=== PATIENT | female | born 1980 | race Caucasian/White ===

== ENCOUNTER 2016-10-09 08:31 | Outpatient (CLI) | payer OTHER ==
[2016-10-09 08:53] LABS: #Basophils 0.1 thou/uL (0.0-0.2); #Eosinphils 0.2 thou/uL (0.0-0.7); #Lymphocytes 2.5 thou/uL (1.20-3.40); #Monocytes 0.4 thou/uL (0.11-0.59); #Neutrophils 6.3 thou/uL (1.40-6.50); %Eosinophils 1.9 % (0.0-10.0); %Lymphocytes 26.1 % (21.0-51.0); %Monocytes 4.3 % (0.0-10.0); %Neutrophils 66.7 % (42.0-75.0); Hemoglobin 14.5 g/dL (12.0-16.0); Mean Corpuscular HGB CONC 32.9 g/dL (32.0-36.0); Mean Corpuscular Hemoglobin 28.9 pg (27.0-31.0); Mean Corpuscular Volume 87.9 fl (81.0-99.0); Mean Platelet Volume 7.2 fL (7.4-10.4); Platelet Count 254 thou/uL (130-400); RBC Distribution Width 13.3 % (11.5-14.5); Red Blood Cell (RBC) Count 5.01 mill/uL (4.20-5.40); White Blood Cell (WBC) Count 9.4 thou/uL (4.8-10.8)
[2016-10-09 09:01] LABS: Hemoglobin A1c 6.1 % (4.0-6.0)
[2016-10-09 09:17] LABS: ALT (SGPT) 31 U/L (0-55); AST (SGOT) 25 U/L (5-34); Albumin 4.3 g/dL (3.5-5.0); Alkaline Phosphatase 46 U/L (40-150); Anion Gap 16 mmol/L (10-20); BUN (Urea Nitrogen) 8 mg/dL (7.0-18.7); Bilirubin, Total 0.5 mg/dL (0.2-1.2); Calc. Creatinine Clearance 0 mL/min (70-130); Calcium 9.4 mg/dL (7.8-10.44); Carbon Dioxide 21 mmol/L (22-29); Cardiac Risk 2.9 (Less than 4.5); Chloride 104 mmol/L (98-107); Cholesterol 126 mg/dL (< 200 Desired); Estimated GFR-MDRD Greater than 90; Globulin 2.6 g/dL (2.4-3.5); Glucose 146 mg/dL (70-105); HDL Cholesterol 43 mg/dL (>60 Neg Risk); LDL Cholesterol, Calculated 48 mg/dL; Potassium 4.2 mmol/L (3.5-5.1); Protein, Total 6.9 g/dL (6.0-8.3); Sodium 137 mmol/L (136-145); Triglycerides 174 mg/dL (Less than 150)
[2016-10-09 09:48] LABS: Thyroid Stimulating Hormone 1.2822 uIU/mL (0.35-4.94); Vitamin D, 25 Hydroxy 34.2 ng/mL (> 30.0)
[2016-10-09 17:31] LABS: Creatinine, Urine 151.49 mg/dL (47-110); Microalbumin Urine 1.4 mg/dL (0.5-50.0); Microalbumin/Creat Ratio 9.2 mg/g (Less than 30)
== END 2016-10-09 08:32 | disposition home or self-care (01) ==
LOC: MADLABBHPM 08:31
PROVIDERS: ATTEND Family Medicine
DX: Z00.00 Encounter for general adult medical examination without abnormal findings (principal)
CPT/HCPCS: 36415; 80053; 80061; 82043; 82306; 83036; 84443; 85025

== ENCOUNTER 2020-10-01 08:28 | Emergency (ER) | payer OTHER ==
[2020-10-01] MEDS ORDERED: Sodium Chloride 0.9% 1,000 ML ONE (08:55)
[2020-10-01] MEDS ORDERED: Ketorolac Tromethamine 30 MG/ML VIAL ONE (08:55)
[2020-10-01] MEDS ORDERED: Ondansetron PF 4 MG/2 ML Vial ONE (08:55)
== END 2020-10-01 09:57 | disposition home or self-care (01) ==
LOC: MADERS 08:28
DX: R51.9 Headache, unspecified (principal); E11.9 Type 2 diabetes mellitus without complications; R00.0 Tachycardia, unspecified
CPT/HCPCS: 96374; 96375; J1885; J2405; J7050

== ENCOUNTER 2021-02-14 07:50 | Outpatient (CLI) | payer OTHER ==
[2021-02-14 08:28] LABS: ALT (SGPT) 17 U/L (8-55); AST (SGOT) 12 U/L (5-34); Albumin 4.1 g/dL (3.5-5.0); Alkaline Phosphatase 50 U/L (40-110); Anion Gap 13 mmol/L (10-20); BUN (Urea Nitrogen) 6 mg/dL (7.0-18.7); Bilirubin, Total 0.6 mg/dL (0.2-1.2); Calc. Creatinine Clearance 0 mL/min (70-130); Calcium 9.8 mg/dL (7.8-10.44); Carbon Dioxide 25 mmol/L (22-29); Cardiac Risk 2.5 (Less than 4.5); Chloride 104 mmol/L (98-107); Cholesterol 104 mg/dl (< 200 Desired); Globulin 2.9 g/dL (2.4-3.5); Glucose 152 mg/dL (70-105); HDL Cholesterol 42 mg/dL (>60 Neg Risk); LDL Cholesterol, Calculated 42 mg/dL; Sodium 138 mmol/L (136-145); Triglycerides 100 mg/dL (Less than 150)
[2021-02-14 09:28] LABS: #Basophils 0.1 thou/uL (0.0-0.2); #Eosinphils 0.2 thou/uL (0.0-0.7); #Lymphocytes 2.8 thou/uL (1.20-3.40); #Monocytes 0.4 thou/uL (0.11-0.59); #Neutrophils 5.1 thou/uL (1.40-6.50); %Eosinophils 2.5 % (0.0-10.0); %Lymphocytes 32.4 % (21.0-51.0); %Monocytes 4.7 % (0.0-10.0); %Neutrophils 59.5 % (42.0-75.0); Mean Corpuscular HGB CONC 32.3 g/dL (32.0-36.0); Mean Corpuscular Hemoglobin 29.1 pg (27.0-31.0); Mean Corpuscular Volume 90.2 fL (78.0-98.0); Mean Platelet Volume 8.3 fL (7.4-10.4); Platelet Count 242 thou/uL (130-400); RBC Distribution Width 12.7 % (11.5-14.5); Red Blood Cell (RBC) Count 4.46 mill/uL (4.20-5.40); White Blood Cell (WBC) Count 8.5 thou/uL (4.8-10.8)
[2021-02-14 17:45] LABS: Hemoglobin A1c 6.9 % (4.0-6.0)
== END 2021-02-14 07:51 | disposition home or self-care (01) ==
LOC: MADLAB 07:50
PROVIDERS: ATTEND Family Medicine
DX: E11.9 Type 2 diabetes mellitus without complications (principal); E78.2 Mixed hyperlipidemia; R00.2 Palpitations
CPT/HCPCS: 36415; 80053; 80061; 83036; 84443; 85025; 93005; 93010

== ENCOUNTER 2022-03-24 09:23 | Emergency (ER) | payer OTHER ==
[2022-03-24] MEDS ORDERED: Morphine 4 MG/ML VIAL ONE (10:44)
[2022-03-24] MEDS ORDERED: Boostrix 0.5 ML (Tdap) VIAL (>/=7 yrs of age) ONE (11:15)
== END 2022-03-24 11:40 | disposition home or self-care (01) ==
LOC: MADERS 09:23
DX: S52.501A Unspecified fracture of the lower end of right radius, initial encounter for closed fracture (principal); S52.611A Displaced fracture of right ulna styloid process, initial encounter for closed fracture; E11.9 Type 2 diabetes mellitus without complications; E78.00 Pure hypercholesterolemia, unspecified; W01.0XXA Fall on same level from slipping, tripping and stumbling without subsequent striking against object, initial encounter; Y92.219 Unspecified school as the place of occurrence of the external cause; Z23 Encounter for immunization
CPT/HCPCS: 25635; 90471; 90715; 96372; J2270